=== PATIENT | female | born 1970 | race American Indian/Alaskan Native ===

== ENCOUNTER 2018-06-11 08:53 | Outpatient (CLI) | payer MEDICAID ==
--- NOTE | 2018-06-11 11:49 | Mammography Report ---
Screening mammogram: The patient has an extremely dense fibroglandular pattern which is symmetric and diffusely distributed bilaterally. In the left MLO projection there is a circumscribed 8.3 mm nodule. There is no clearly definable correlation in the CC projection however there is a slightly smaller nodule noted in the medial breast in the CC projection. With this exception the findings. Generally unchanged from prior exams dating back to 2014. CAD is not captured. Impression: Extremely dense fibroglandular pattern. Left breast asymmetry. Recommendation: Bilateral breast ultrasound due to the extreme density of this patient's breast pattern with specific attention to the upper left breast. If there is a significant finding additional compression mammography may be required. BI-RADS CATEGORY: 0 = Needs additional imaging evaluation ACR BI-RADS MAMMOGRAPHIC CODES: 0 = Needs additional imaging evaluation; 1 = Negative; 2 = Benign; 3 = Probably benign; 4 = Suspicious; 5 = Malignant; 6 = Known biopsy-proven malignancy COMMENT: 1. Dense breast tissue, i.e., adenosis, fibrocystic changes, etc., may obscure an underlying neoplasm. 2. Approximately 10% of cancers are not detected with mammography. 3. A negative mammography report should not delay biopsy if a clinically suspicious mass is present.
== END 2018-06-11 08:54 | disposition home or self-care (01) ==
LOC: SPVWC 08:53
PROVIDERS: ATTEND Family Medicine
DX: Z12.31 Encounter for screening mammogram for malignant neoplasm of breast (principal); N64.89 Other specified disorders of breast
CPT/HCPCS: 77067

== ENCOUNTER → 2018-07-15 | Outpatient (CLI) | payer MEDICAID ==
--- NOTE | 2018-07-15 16:54 | Ultrasound Report ---
LEFT DIGITAL DIAGNOSTIC MAMMOGRAM and LEFT BREAST ULTRASOUND: 07/15/18 15:40:00 CLINICAL: Recalled for asymmetry. COMPARISON:06/11/18 screening FINDINGS: Spot magnification views were performed and demonstrate a persistent partially circumscribed upper inner asymmetry. Ultrasound of the upper inner left breast was performed and demonstrated multiple benign cysts and no solid mass. The largest cyst is at 12 o'clock 8 cm from the nipple measuring 7 x 6 x 4 mm. A cyst at 11 o'clock 6 cm from the nipple measures 7 x 4 x 2 mm. A cyst at 10 o'clock 6 cm from the nipple under 6 x 5 x 6 mm. A cyst at 10 o'clock 6 cm from the nipple measures 5 x 5 x 3 mm and a cyst at 9 o'clock 5 cm from the nipple measures 7 x 5 x 3 mm. IMPRESSION: Benign cysts and no suspicious finding. BI-RADS CATEGORY: 2 - - Benign RECOMMENDATION: Routine mammographic screening in one year. ACR BI-RADS MAMMOGRAPHIC CODES: 0 = Needs additional imaging evaluation; 1 = Negative; 2 = Benign; 3 = Probably benign; 4 = Suspicious; 5 = Malignant; 6 = Known biopsy-proven malignancy COMMENT: 1. Dense breast tissue, i.e., adenosis, fibrocystic changes, etc., may obscure an underlying neoplasm. 2. Approximately 10% of cancers are not detected with mammography. 3. A negative mammography report should not delay biopsy if a clinically suspicious mass is present. COMMENT: Patient follow-up letters are generated via our [email or web address] application.
== END | disposition home or self-care (01) ==
LOC: SPVWC 15:40
PROVIDERS: ATTEND Family Medicine
DX: N60.02 Solitary cyst of left breast (principal)

== ENCOUNTER 2019-10-12 16:02 | Outpatient (CLI) | payer BC ==
--- NOTE | 2019-10-13 16:36 | Mammography Report ---
DIGITAL SCREENING MAMMOGRAM WITH CAD, 10/12/2019 INDICATION: Routine screening mammography. TECHNIQUE: Digital bilateral 2D mammography was obtained in the craniocaudal and mediolateral obliq ue projections. This examination was interpreted with the benefit of Computer-Aided Detection analysi s. COMPARISON: 06/11/2018 FINDINGS: Breast Density: The breasts are extremely dense, which lowers the sensitivity of mammography. There is no evidence of dominant mass, suspicious calcifications or architectural distortion in eithe r breast. IMPRESSION: No mammographic evidence of malignancy. Follow up recommendation: Routine yearly BI-RADS Category 2: Benign. A "normal" or negative report should not discourage follow up or biopsy of a clinically significant f inding. A written summary of these findings will be mailed to the patient. The patient will be entered into a mammography reporting system which will generate a reminder letter for the patient's next appointmen t at the appropriate interval. The [employer] recommends yearly mammograms starting at age 40 and continuing as l cedric as a woman is in good health. Breast MRI is recommended for women with an approximate 20-25% or greater lifetime risk of breast cancer, including women with a strong family history of breast or ova candace cancer or who have been treated for Hodgkin's disease. Signer Name: Richard Bradley MD Signed: 10/13/2019 4:31 PM Workstation Name: [id number]
== END 2019-10-12 16:03 | disposition home or self-care (01) ==
LOC: SPVWC 16:02
PROVIDERS: ATTEND Obstetrics & Gynecology
DX: Z12.31 Encounter for screening mammogram for malignant neoplasm of breast (principal)
CPT/HCPCS: 77067

== ENCOUNTER 2021-06-08 09:55 | Outpatient (CLI) | payer BC ==
--- NOTE | 2021-06-08 14:10 | Mammography Report ---
DIGITAL SCREENING MAMMOGRAM WITH CAD, 06/08/2021 CLINICAL INFORMATION / INDICATION: Routine screening mammography. SCREENING MAMMO Z12.31 TECHNIQUE: Digital bilateral 2D mammography was obtained in the craniocaudal and mediolateral obliqu e projections. This examination was interpreted with the benefit of Computer-Aided Detection analysis . COMPARISON: 07/15/2018 and 10/12/2019. FINDINGS: Breast Density: The breasts are extremely dense, which lowers the sensitivity of mammography. No dominant mass, suspicious calcifications, or architectural distortion in either breast. IMPRESSION: No mammographic evidence of malignancy. Follow up recommendation: Routine yearly BI-RADS Category 1: Negative. A "normal" or negative report should not discourage follow up or biopsy of a clinically significant f inding. A written summary of these findings will be mailed to the patient. The patient will be entered into a mammography reporting system which will generate a reminder letter for the patient's next appointmen t at the appropriate interval. The [employer] recommends yearly mammograms starting at age 40 and continuing as l cedric as a woman is in good health. Breast MRI is recommended for women with an approximate 20-25% or greater lifetime risk of breast cancer, including women with a strong family history of breast or ova candace cancer or who have been treated for Hodgkin's disease. Signer Name: Sawyer Pack MD Signed: 06/08/2021 2:06 PM Workstation Name: [id number]
== END 2021-06-08 09:56 | disposition home or self-care (01) ==
LOC: SPVWC 09:55
PROVIDERS: ATTEND Obstetrics & Gynecology
DX: Z12.31 Encounter for screening mammogram for malignant neoplasm of breast (principal); N64.89 Other specified disorders of breast
CPT/HCPCS: 77067

== ENCOUNTER 2022-07-24 15:00 | Outpatient (CLI) | payer BC | END 2022-07-24 15:01 | disposition home or self-care (01) | LOC: SPVWC 15:00 | PROVIDERS: ATTEND Obstetrics & Gynecology | DX: Z12.31 Encounter for screening mammogram for malignant neoplasm of breast (principal) | CPT/HCPCS: 77067 ==